=== PATIENT | female | born 1985 | race African-American/Black ===

== ENCOUNTER 2020-07-03 17:36 | Emergency (ER) | payer BC, OTHER ==
[2020-07-03 17:50] VITALS: BP 147/86; PULSE 74; TEMP 99.4; BMI 27.2
[2020-07-03 18:14] LABS: MCHC 31.1 g/dl (32.0-36.0)
[2020-07-03 18:17] LABS: BASO % 0.7 % (0-2.0); EOS % 1.2 % (0-4.5); HEMATOCRIT 26.5 % (32.4-45.2); HEMOGLOBIN 8.2 GM/dl (10.7-15.3); LYMPH % 14.7 % (8-40); MCH 23.8 pg (25.7-33.7); MEAN CELL VOLUME 76.7 fl (80-96); MEAN PLT VOLUME 9.4 fl (7.5-11.1); MONO % 6.8 % (3.8-10.2); NEUT % 76.6 % (42.8-82.8); PLATELET COUNT 330 K/MM3 (134-434); RBC 3.46 M/mm3 (3.60-5.2); RDW 26.3 % (11.6-15.6); WHITE BLOOD COUNT 5.1 K/mm3 (4.0-10.8)
[2020-07-03 18:20] LABS: ADD RBC MORPHOLOGY YES
[2020-07-03 18:39] LABS: ALBUMIN 3.9 g/dl (3.4-5.0); BILIRUBIN,TOTAL 0.6 mg/dl (0.2-1); CALCIUM 8.9 mg/dl (8.5-10); CREATININE 0.7 mg/dl (0.55-1.3); POTASSIUM 4.5 mmol/L (3.5-5.1); TOT PROT 7.2 g/dl (6.4-8.2)
[2020-07-03 20:16] LABS: ANISOCYTOSIS 3+; PLATELET ESTIMATE ADEQUATE; TARGET CELLS 2+
== END 2020-07-03 19:03 | disposition home or self-care (01) ==
LOC: FER 17:36
DX: N92.1 Excessive and frequent menstruation with irregular cycle (principal)
CPT/HCPCS: 36415; 80053; 84703; 85025; 99283-25